=== PATIENT | male | born 1955 | race Caucasian/White ===

== ENCOUNTER → 2020-10-13 | Outpatient (CLI) | payer MEDICARE ==
[~2020-10-13] MED LIST: ELIQUIS 5 MG TAB5 MG PO
== END ==
LOC: KOH-I 16:04
DX: M17.12 Unilateral primary osteoarthritis, left knee (principal); M05.79 Rheumatoid arthritis with rheumatoid factor of multiple sites without organ or systems involvement
CPT/HCPCS: 73564

== ENCOUNTER → 2020-10-18 | Outpatient (CLI) | payer MEDICARE | LOC: HEART 5 10-12 15:00 | DX: I73.9 Peripheral vascular disease, unspecified (principal) ==

== ENCOUNTER → 2021-12-04 | Outpatient (CLI) | payer MEDICARE | LOC: KOH-I 15:49 | DX: M17.12 Unilateral primary osteoarthritis, left knee (principal) | CPT/HCPCS: 73562 ==